=== PATIENT | male | born 1970 | race Caucasian/White ===

== ENCOUNTER 2020-07-27 19:41 | Emergency (ER) | payer OTHER ==
[2020-07-27 19:59] VITALS: BP 176/98; PULSE 88; TEMP 98.1; BMI 33.5
== END 2020-07-27 22:05 | disposition home or self-care (01) ==
LOC: JERFT 19:41
DX: S92.535A Nondisplaced fracture of distal phalanx of left lesser toe(s), initial encounter for closed fracture (principal)
CPT/HCPCS: 73630-TC-LT; 99284-25

== ENCOUNTER 2020-10-25 17:41 | Emergency (ER) | payer OTHER ==
[2020-10-25 18:08] VITALS: BP 143/91; PULSE 80; TEMP 98.6; BMI 31.5
== END 2020-10-25 18:41 | disposition home or self-care (01) ==
LOC: JERFT 17:41
DX: Z76.0 Encounter for issue of repeat prescription (principal)
CPT/HCPCS: 99281-25

== ENCOUNTER 2022-05-28 09:35 | Emergency (ER) | payer OTHER ==
[2022-05-28 09:41] VITALS: BP 135/90; PULSE 72; RESP 18; TEMP 98.7; BMI 31.6
[2022-05-28] MEDS ORDERED: TETRACAINE 0.5% HCL 0.6ML DROPPER.BOTTLE OD ONE (09:56)
[2022-05-28] MEDS ORDERED: FLUORESCEIN NA 1 EA STRIP OD ONE (09:56)
[2022-05-28] MEDS ORDERED: FLUORESCEIN NA 1 EA STRIP ONE (09:58)
[2022-05-28] MEDS ORDERED: TETRACAINE 0.5% OPHTH SOLN 2 ML BOTTLE ONE (09:59)
== END 2022-05-28 10:22 | disposition home or self-care (01) ==
LOC: JER 09:35
DX: S05.02XA Injury of conjunctiva and corneal abrasion without foreign body, left eye, initial encounter (principal); W45.8XXA Other foreign body or object entering through skin, initial encounter
CPT/HCPCS: 99282-25

== ENCOUNTER 2022-11-17 08:58 | Emergency (ER) | payer OTHER ==
[2022-11-17 09:12] VITALS: BP 138/88; PULSE 64; RESP 16; TEMP 97.1; BMI 31.6
[2022-11-17] MEDS ORDERED: FLUORESCEIN NA 1 EA STRIP OD ONE (09:22)
[2022-11-17] MEDS ORDERED: TETRACAINE 0.5% HCL 0.6ML DROPPER.BOTTLE OD ONE (09:22)
[2022-11-17] MEDS ORDERED: TETRACAINE 0.5% OPHTH SOLN 2 ML BOTTLE ONE (09:23)
[2022-11-17] MEDS ORDERED: FLUORESCEIN NA 1 EA STRIP ONE (09:23)
== END 2022-11-17 09:54 | disposition home or self-care (01) ==
LOC: JERFT 08:58
DX: S05.01XA Injury of conjunctiva and corneal abrasion without foreign body, right eye, initial encounter (principal); X58.XXXA Exposure to other specified factors, initial encounter
CPT/HCPCS: 99283-25

== ENCOUNTER 2023-05-01 12:21 | Emergency (ER) | payer OTHER ==
[2023-05-01 14:04] LABS: THROAT:GRP A STREP NOT DETECTED (NOTDETECTED)
[2023-05-01 16:07] VITALS: BP 151/95; PULSE 70; RESP 18; TEMP 97.8; BMI 24.4
== END 2023-05-01 14:35 | disposition home or self-care (01) ==
LOC: JERFT 12:21 → JER 12:21 → JERFT 14:35
DX: J02.9 Acute pharyngitis, unspecified (principal); R50.9 Fever, unspecified; R05.9 Cough, unspecified; J06.9 Acute upper respiratory infection, unspecified; Z20.822 Contact with and (suspected) exposure to COVID-19
CPT/HCPCS: 0241U-QW; 71046-TC-FY; 87651; 99284-25

== ENCOUNTER 2023-12-17 13:12 | Emergency (ER) | payer OTHER ==
[2023-12-17 13:19] VITALS: BP 167/104; PULSE 69; RESP 16; TEMP 98; BMI 24.3
== END 2023-12-17 16:56 | disposition home or self-care (01) ==
LOC: JER 13:12
DX: H53.8 Other visual disturbances (principal); R51.9 Headache, unspecified; R07.9 Chest pain, unspecified
CPT/HCPCS: 93005; 93010; 99283-25

== ENCOUNTER 2024-05-29 01:20 | Emergency (ER) | payer OTHER ==
[2024-05-29 01:33] VITALS: BMI 31.6
[2024-05-29] MEDS ORDERED: LIDOCAINE 5% TOPICAL PATCH ONE (02:40)
[2024-05-29] MEDS ORDERED: ACETAMINOPHEN INJECTION 100 ML ONE (02:40)
[2024-05-29] MEDS: LIDOCAINE 5% TOPICAL PATCH TP ONE (02:55)
[2024-05-29 03:00] LABS: BASO % 0.3 % (0-2.0); EOS % 0.8 % (0-4.5); HEMATOCRIT 40.6 % (35.4-49); HEMOGLOBIN 14.1 GM/dL (11.7-16.9); LYMPH % 20.9 % (8-40); MCHC 34.6 g/dl (32.0-35.9); MEAN CELL VOLUME 89.5 fl (80-96); MEAN PLT VOLUME 8.1 fl (7.5-11.1); MONO % 8.1 % (3.8-10.2); NEUT % 69.9 % (42.8-82.8); PLATELET COUNT 213 10^3/uL (134-434); RBC 4.54 M/mm3 (4.00-5.60); WHITE BLOOD COUNT 5.5 K/mm3 (4.0-10.0)
[2024-05-29] MEDS: ACETAMINOPHEN 1000 MG/100 ML BAG IVPB ONE (03:06)
[2024-05-29 03:29] LABS: ALBUMIN 4.2 g/dl (3.4-5.0); BLOOD UREA NITROGEN 16.2 mg/dL (7-18); CALCIUM 9.1 mg/dL (8.5-10.1)
[2024-05-29 03:32] LABS: CREATININE 1.2 mg/dL (0.55-1.3)
[2024-05-29 03:34] LABS: BILIRUBIN,TOTAL 0.6 mg/dL (0.2-1); TOT PROT 7.9 g/dl (6.4-8.2)
[2024-05-29 04:06] VITALS: BP 139/91; PULSE 73; RESP 16; TEMP 98.1
[2024-05-29] MEDS ORDERED: LIDOCAINE PATCH REMOVAL MC SCH (22:00)
== END 2024-05-29 04:21 | disposition home or self-care (01) ==
LOC: JER 01:20
DX: I10 Essential (primary) hypertension (principal); R00.2 Palpitations; M54.2 Cervicalgia; R42 Dizziness and giddiness; R51.9 Headache, unspecified
CPT/HCPCS: 36415; 71046-TC-FY; 80053; 84484; 85025; 93005; 93010; 99285-25